=== PATIENT | female | born 1950 | race Caucasian/White ===

== ENCOUNTER → 2018-12-23 | Outpatient (CLI) | payer MEDICARE, OTHER ==
[~2018-12-23] MED LIST: ALPR.25 PO; ASPI81EC PO; ATOR10 PO; CALCAVITD PO; HYDACE5 PO; MAGCHL64ER PO; NITR100CA PO; NYST100SU MT; OMEP40CA12 PO; PHENA200 PO; POTCHL20ER PO; PRED10 PO; ZOLP10 PO; ZZCYCL50 PO
== END | disposition home or self-care (01) ==
LOC: LAB SHORT 15:23 → LAB EV 15:23
DX: N39.0 Urinary tract infection, site not specified (principal)
CPT/HCPCS: 87077; 87086; 87186

== ENCOUNTER → 2019-01-31 | Outpatient (CLI) | payer MEDICARE, OTHER ==
[2019-01-31 13:38] LABS: Protein, Urine Quantitative 51.9 mg/dL (0.0-11.9)
== END | disposition home or self-care (01) ==
LOC: LAB 12:33 → LAB SHORT 12:33
PROVIDERS: Internal Medicine Nephrology
DX: N18.2 Chronic kidney disease, stage 2 (mild) (principal); D63.1 Anemia in chronic kidney disease
CPT/HCPCS: 81050; 82043; 82570; 84156

== ENCOUNTER → 2019-03-27 | Outpatient (CLI) | payer MEDICARE, OTHER | END | disposition home or self-care (01) | LOC: LAB SHORT 15:14 → LAB 15:14 | DX: R35.0 Frequency of micturition (principal) | CPT/HCPCS: 87086 ==

== ENCOUNTER → 2019-06-20 | Outpatient (CLI) | payer MEDICARE, OTHER ==
[~2019-06-20] MED LIST changes: +ALPR.5 PO; +AMOCLA875 PO; +ATORVASTATIN CA10 MG PO; +AZAT50 PO; +Azithromycin250 MG; +CEPH500 PO; +FINA5 PO; +FISH OIL 1,001000 MG PO; +HYDHOMSY; +LEVFLO500 PO; +LEVO-T88 MCG PO; +MAGNESIUM250 MG PO; +NORT25 PO; +POTASSIUM99 MG PO; +PRED20 PO; +PROBIOTIC1 EAC2 PO; +SHINGRIX V50 MCG/0.5; +TOBRAMYCIN5 ML; +TRAZ50 PO; +Ventolin/Prove6.7 GM INH; +Vitamin D2000 UNIT PO
[2019-06-20 16:05] LABS: Creatinine Urine 50.1 mg/dL (27.00-270.00); Protein, Urine Quantitative 8.7 mg/dL (0.0-11.9)
[2019-06-20 16:08] LABS: Microalbumin, Urine Quant. 8.91 mg/L (0.000-20.000)
== END ==
LOC: LAB SHORT 10:35 → LAB 10:35
PROVIDERS: Internal Medicine Nephrology
DX: N18.3 Chronic kidney disease, stage 3 (moderate) (principal); D75.1 Secondary polycythemia
CPT/HCPCS: 81050; 82043; 82570; 84156

== ENCOUNTER → 2019-07-15 | Outpatient (CLI) | payer MEDICARE, OTHER ==
[2019-07-15 10:06] LABS: BASOPHILS ABSOLUTE AUTO 0.01 K/mm3 (0.00-0.23); BASOPHILS PERCENT AUTO 0 % (0-2); EOSINOPHILS ABSOLUTE AUTO 0.02 K/mm3 (0.00-0.68); EOSINOPHILS PERCENT AUTO 0 % (0-6); Hematocrit 35.9 % (33.0-51.0); Hemoglobin 12.5 g/dL (11.5-16.0); IMMATURE GRAN ABSOLUTE AUTO 0.02 K/mm3 (0.00-0.10); IMMATURE GRAN PERCENT AUTO 0 % (0-1); LYMPHOCYTES ABSOLUTE AUTO 1.04 K/mm3 (0.84-5.20); LYMPHOCYTES PERCENT AUTO 15 % (21-46); MONOCYTES ABSOLUTE AUTO 0.45 K/mm3 (0.16-1.47); MONOCYTES PERCENT AUTO 7 % (4-13); Mean Corpuscular HGB 32.1 pg (26.0-34.0); Mean Corpuscular HGB Conc 34.8 g/dL (31.5-36.5); Mean Corpuscular Volume 92 fL (80-100); Mean Platelet Volume 10.5 fL (9.1-12.4); NEUTROPHILS ABSOLUTE AUTO 5.32 K/mm3 (1.96-9.15); NEUTROPHILS PERCENT AUTO 78 % (41-73); Platelet Count 251 K/mm3 (150-400); RDW Coefficient Variation 12.3 % (11.7-14.2); RDW Standard Deviation 41.3 fL (35.1-46.3); White Blood Cell Count 6.86 K/mm3 (4.00-11.30)
[2019-07-15 10:16] LABS: Albumin/Globulin Ratio 0.6 (0.8-1.8); Bilirubin, Total 0.5 mg/dL (0.1-1.0); Bun/Creatinine Ratio 19.6 (12.0-20.0); Calcium, Blood 8.5 mg/dL (8.5-10.1); Creatinine, Blood 1.02 mg/dL (0.40-1.00); Globulin, Blood 4.7 g/dL (2.2-4.0); Potassium, Blood 3.3 mmol/L (3.5-5.5); Total Protein, Blood 7.7 g/dL (6.4-8.2)
== END ==
LOC: LAB SHORT 10:00 → LAB EV 10:00
PROVIDERS: Emergency Medicine
DX: R05 Cough (principal); R50.9 Fever, unspecified
CPT/HCPCS: 80053; 85025; 87040

== ENCOUNTER 2019-07-24 09:43 | Inpatient (IN) | payer MEDICARE, OTHER ==
[~2019-07-24] VITALS: Ht 162.6 cm; Wt 56.8 kg
[~2019-07-24 09:43] MED LIST changes: -ALPR.5 PO; -AMOCLA875 PO; -ATORVASTATIN CA10 MG PO; -AZAT50 PO; -Azithromycin250 MG; -CEPH500 PO; -FINA5 PO; -FISH OIL 1,001000 MG PO; -HYDHOMSY; -LEVFLO500 PO; -LEVO-T88 MCG PO; -MAGNESIUM250 MG PO; -NORT25 PO; -POTASSIUM99 MG PO; -PRED20 PO; -PROBIOTIC1 EAC2 PO; -SHINGRIX V50 MCG/0.5; -TOBRAMYCIN5 ML; -TRAZ50 PO; -Ventolin/Prove6.7 GM INH; -Vitamin D2000 UNIT PO
[2019-07-24 10:25] LABS: BASOPHILS ABSOLUTE AUTO 0.02 K/mm3 (0.00-0.23); BASOPHILS PERCENT AUTO 0 % (0-2); EOSINOPHILS PERCENT AUTO 0 % (0-6); Hematocrit 37.5 % (33.0-51.0); Hemoglobin 12.7 g/dL (11.5-16.0); IMMATURE GRAN ABSOLUTE AUTO 0.14 K/mm3 (0.00-0.10); IMMATURE GRAN PERCENT AUTO 1 % (0-1); LYMPHOCYTES ABSOLUTE AUTO 0.82 K/mm3 (0.84-5.20); LYMPHOCYTES PERCENT AUTO 5 % (21-46); MONOCYTES PERCENT AUTO 6 % (4-13); Mean Corpuscular HGB 31.8 pg (26.0-34.0); Mean Corpuscular HGB Conc 33.9 g/dL (31.5-36.5); Mean Corpuscular Volume 94 fL (80-100); Mean Platelet Volume 9.7 fL (9.1-12.4); NEUTROPHILS ABSOLUTE AUTO 15.98 K/mm3 (1.96-9.15); NEUTROPHILS PERCENT AUTO 89 % (41-73); Platelet Count 437 K/mm3 (150-400); RDW Coefficient Variation 12.5 % (11.7-14.2); RDW Standard Deviation 43.5 fL (35.1-46.3); Red Blood Cell Count 3.99 M/mm3 (3.80-5.20); White Blood Cell Count 17.96 K/mm3 (4.00-11.30)
[2019-07-24] MEDS ORDERED: FINA5 PO (10:51)
[2019-07-24] MEDS ORDERED: LEVFLO500 PO (10:52)
[2019-07-24] MEDS ORDERED: Azithromycin250 MG (10:52)
[2019-07-24] MEDS ORDERED: NORT25 PO (10:52)
[2019-07-24] MEDS ORDERED: TRAZ50 PO (10:52)
[2019-07-24] MEDS ORDERED: ATORVASTATIN CA10 MG PO (10:52)
[2019-07-24] MEDS ORDERED: LEVO-T88 MCG PO (10:52)
[2019-07-24] MEDS ORDERED: TOBRAMYCIN5 ML (10:52)
[2019-07-24] MEDS ORDERED: PRED20 PO (10:52)
[2019-07-24] MEDS ORDERED: HYDHOMSY (10:53)
[2019-07-24] MEDS ORDERED: Ventolin/Prove6.7 GM INH (10:53)
[2019-07-24 10:54] LABS: Alanine Aminotransfer (ALT/SGP 11 U/L (12-78); Albumin, Blood 2.3 g/dL (3.4-5.0); Albumin/Globulin Ratio 0.4 (0.8-1.8); Alk Phos 120 U/L (50-136); Anion Gap 8 mmol/L (6-16); Aspartate Aminotrans (AST/SGOT 10 U/L (12-37); Bilirubin, Total 0.5 mg/dL (0.1-1.0); Blood Urea Nitrogen 22 mg/dL (8-24); Bun/Creatinine Ratio 29.5 (12.0-20.0); CO2, Blood 28 mmol/L (21-32); Calcium, Blood 9.6 mg/dL (8.5-10.1); Chloride, Blood 103 mmol/L (98-108); Creatinine, Blood 0.75 mg/dL (0.40-1.00); Globulin, Blood 5.5 g/dL (2.2-4.0); Glomerular Filtration Rate >60 (60-); Glucose, Blood 108 mg/dL (70-99); Potassium, Blood 3.6 mmol/L (3.5-5.5); Sodium, Blood 139 mmol/L (136-145); Total Protein, Blood 7.8 g/dL (6.4-8.2)
[2019-07-24] MEDS ORDERED: AZAT50 PO (13:09)
--- NOTE | 2019-07-24 18:40 | NUR ---
SHE CAME TO ROOM 312 WITH A 22G IV IN HER RH. NO OTHER IV SITES.
--- NOTE | 2019-07-24 18:41 | NUR ---
SHE HAS BEEN ADMITTED TO 312 FROM THE ER AT 1725. SHE IS A&O. SHE IS SOFT SPOKEN. ORIENTED TO THE ROOM, THE CALL LIGHT, TV CONTROL AND TELEPHONE. SHE IS PALE AND APPEARS PETITE AND FRAGILE. SHE DENIES PAIN OR SOB. SHE DOES ADMIT TO SOME SOB WHILE SHE IS COUGHING. HER COUGH IS WET BUT NON-PRODUCTIVE. SPUTUM CUP AT BEDSIDE IN CASE SHE CAN EXPECTORATE. ADMIT HX AND ASSESSMENT DONE. HER IS BRINGING HER MED LIST TONIGHT. TEDS ON BILATERALLY AND LOVENOX STARTED.SHE ATE A GOOD DINNER.
--- NOTE | 2019-07-24 20:52 | NUR ---
ASSUMED CARE OF THE PATIENT. PATIENT UP TO THE BATHROOM. GETS TO COUGHING FROM BRONCHIAL SPASMS WHEN EVER SHE TALKS OR WHEN SHE GETS UP AND MOVES. SHE GOT TO THE BATHROOM AND GOT SOB WITH THE EXERTION. LOST HER BREATH WHILE BRUSHING HER TEETH. VOIDED CLEAR YELLOW. ASSISTED BACK TO BED. WRAPPED HER IV SITE, INFUSING WITH OUT ANY PROBLEMS. RT REPORTS SHE HAS REFUSED CPAP AND DOES NOT WANT A BREATHING TREATMENT AT THIS TIME. LUNG SOUNDS ARE DIMINISHED WITH VERY FINE RALES HER AND THERE BETWEEN THE COUGHING SPASMS. CALL LIGHT GIVEN, WILL CONTINUE TO MONITOR.
[2019-07-24] MEDS ORDERED: ALPR.5 PO (22:23)
[2019-07-24] MEDS ORDERED: SHINGRIX V50 MCG/0.5 ×2 (22:26→22:29)
[2019-07-24] MEDS ORDERED: FISH OIL 1,001000 MG PO (22:26)
[2019-07-24] MEDS ORDERED: Vitamin D2000 UNIT PO (22:28)
[2019-07-24] MEDS ORDERED: MAGNESIUM250 MG PO (22:29)
[2019-07-24] MEDS ORDERED: POTASSIUM99 MG PO (22:31)
[2019-07-25 04:53] LABS: BASOPHILS ABSOLUTE AUTO 0.02 K/mm3 (0.00-0.23); BASOPHILS PERCENT AUTO 0 % (0-2); EOSINOPHILS ABSOLUTE AUTO 0.01 K/mm3 (0.00-0.68); EOSINOPHILS PERCENT AUTO 0 % (0-6); Hemoglobin 10.9 g/dL (11.5-16.0); IMMATURE GRAN ABSOLUTE AUTO 0.13 K/mm3 (0.00-0.10); IMMATURE GRAN PERCENT AUTO 1 % (0-1); LYMPHOCYTES ABSOLUTE AUTO 0.97 K/mm3 (0.84-5.20); LYMPHOCYTES PERCENT AUTO 6 % (21-46); MONOCYTES ABSOLUTE AUTO 1.14 K/mm3 (0.16-1.47); MONOCYTES PERCENT AUTO 7 % (4-13); Mean Corpuscular HGB 31.4 pg (26.0-34.0); Mean Corpuscular Volume 95 fL (80-100); NEUTROPHILS ABSOLUTE AUTO 14.08 K/mm3 (1.96-9.15); NEUTROPHILS PERCENT AUTO 86 % (41-73); Platelet Count 409 K/mm3 (150-400); RDW Coefficient Variation 12.8 % (11.7-14.2); RDW Standard Deviation 44.4 fL (35.1-46.3); Red Blood Cell Count 3.47 M/mm3 (3.80-5.20); White Blood Cell Count 16.35 K/mm3 (4.00-11.30)
[2019-07-25 05:26] LABS: Anion Gap 9 mmol/L (6-16); Blood Urea Nitrogen 18 mg/dL (8-24); Bun/Creatinine Ratio 26.1 (12.0-20.0); CO2, Blood 25 mmol/L (21-32); Calcium, Blood 8.4 mg/dL (8.5-10.1); Chloride, Blood 108 mmol/L (98-108); Creatinine, Blood 0.69 mg/dL (0.40-1.00); Glomerular Filtration Rate >60 (60-); Glucose, Blood 83 mg/dL (70-99); Potassium, Blood 3.6 mmol/L (3.5-5.5); Sodium, Blood 142 mmol/L (136-145)
--- NOTE | 2019-07-25 05:41 | NUR ---
SHIFT SUMMARY: DENILSON HAD A ROUGH NIGHT, EVERY TIME SHE STARTED TO REST SHE WOULD COUGH KEEPING HER AWAKE. SHE DENIED CPAP, BREATHING TREATMENTS OR ANYTHING TO HELP HER. SHE SAID SHE WOULD TALK TO DR. RUTH IN THE MORNING AND GO FROM THERE. SHE WAS SBA TO THE BATHROOMS DUE TO IV POLE AND MILD WEAKNESS, BUT DID ALRIGHT WHEN SHE DID GO. IV CONTINUED TO INFUSE WITH NO DIFFICULTIES. NO OTHER ACUTE CHANGES OCCURRED THIS SHIFT. CALL LIGHT REMAINED WITH IN REACH AND USED APPROPRIATLY. WILL REPORT TO DAY SHIFT RN.
--- NOTE | 2019-07-25 11:57 | NUR ---
SHE HAS BEEN TRYING TO SLEEP. EARLIER CONSULTED WITH HER. JUST NOW, ROUNDED ON HER. ORDERED HER COUGH SYRUP. HAS BEEN NOTIFIED OF HER 2 POS BLD CULTURES AND THAT SHE IS REQUESTING AN ORDER FOR HER XANAX. SHE HAS BEEN NPO SINCE 8AM. BRONCH TIME ABOUT 1230. THE COUGH SYRUP HAS HELPED HER COUGH.
--- NOTE | 2019-07-25 13:41 | NUR ---
TO DAY SURGERY VIA [facility] AT 1340.
--- NOTE | 2019-07-25 13:44 | NUR ---
History, Chart, Medications and Allergies reviewed before start of procedure. Patient confirms NPO since 0800 and agrees with scheduled surgery. Patient has been NPO since midnight except for 5 ounces of chocolate milk finished at [address] Ferris notified and plan for propofol sedation continues.
--- NOTE | 2019-07-25 14:43 | NUR ---
07/25/19 1443 Felipe Blanton Bite Block Placed. PATIENT DETERMINED TO BE ASA APPROPRIATE FOR PROPOFOL SEDATION PRIOR TO START OF PROCEDURE BY 3-LEAD EKG REVIEWED WITH PHYSICIAN PRIOR TO START OF PROCEDURE.Patient to ENDO 2. MONITOR INTACT WITH CONTINUOUS PULSE OXIMETRY AND INTERMITTENT BP. O2 VIA N/C INTACT THROUGHOUT SEDATION/PROCEDURE.
--- NOTE | 2019-07-25 15:52 | NUR ---
TO THIRD FLOOR WITH RN AFTER REPORT GIVEN PATIMARYANN TCONTINUES TO COUGH SOME BUT HAS GOTTEN SLIGHTLY BETTER AFTER BREATHING TREATMENT
--- NOTE | 2019-07-25 16:48 | NUR ---
SHE RETURNED FROM DAY SURGERY POST [facility]ONCH AT 1558. SHE WAS AWAKE AND COUGHING. NO SPUTUM. HER WAS WAITING FOR HER. SHE REMAINS NPO UNTIL 1714. VSS X2. IVF'S RESUMED. NEW ANTIBIOTICS STARTED. SHE FILLED OUT HER MENU FOR THE NEXT 2 MEALS EVEN THOUGH SHE SAYS SHE HAS NO APPETITE. SHE REMAINS ON RA, NO O2.
--- NOTE | 2019-07-25 17:46 | NUR ---
AT 1715 SHE TOOK SOME DRINKS OF WATER WITHOUT PROBLEM POST BRONCHOSCOPY. SHE THEN TOOK COUGH SYRUP, AN ALPRAZALOM AND SOME DINNER. NO DYSPHAGIA. HER CONSTANT COUGH POST BRONCH HAS SUBSIDED. VSS. NO DIZZINESS. RA SATS WNL. PATIENT ADVOCATE NOTIFIED THAT SHE AND HER WOULD LIKE US TO PROVIDE WITNESSES TO THEIR ADVANCE DIRECTIVES IF POSSIBLE. SHE WILL LOOK INTO THAT IN THE MORNING. 4 ANTIBIOTICS GIVEN TODAY.
--- NOTE | 2019-07-25 19:55 | NUR ---
ASSUMED CARE OF THE PATIENT. PATIENT VISITING WITH HER FAMILY. STILL HAVING COUGHING SPASMS BUT NOT BAD. SHE HAD HER COUGH SYRUP TODAY WHICH HAS HELPED. LUNG SOUNDS ARE RALES THROUGHOUT, SECREATIONS STARTING TO BREAK UP. ENCOURAGED USE OF INSPIROMETER AND FLUTTER VALVE. INSTRUCTED TO USE AT LEAST 5 TIMES A DAY TO HELP. ASSESSMENT COMPLETED. CALL LIGHT IN REACH WILL CONTINUE TO MONTIOR.
[2019-07-26 04:02] LABS: BASOPHILS ABSOLUTE AUTO 0.01 K/mm3 (0.00-0.23); BASOPHILS PERCENT AUTO 0 % (0-2); EOSINOPHILS ABSOLUTE AUTO 0.12 K/mm3 (0.00-0.68); EOSINOPHILS PERCENT AUTO 1 % (0-6); Hematocrit 29.1 % (33.0-51.0); Hemoglobin 9.6 g/dL (11.5-16.0); IMMATURE GRAN ABSOLUTE AUTO 0.06 K/mm3 (0.00-0.10); IMMATURE GRAN PERCENT AUTO 1 % (0-1); LYMPHOCYTES ABSOLUTE AUTO 0.94 K/mm3 (0.84-5.20); LYMPHOCYTES PERCENT AUTO 10 % (21-46); MONOCYTES ABSOLUTE AUTO 0.83 K/mm3 (0.16-1.47); MONOCYTES PERCENT AUTO 8 % (4-13); Mean Corpuscular HGB 31.8 pg (26.0-34.0); Mean Corpuscular Volume 96 fL (80-100); Mean Platelet Volume 9.6 fL (9.1-12.4); NEUTROPHILS ABSOLUTE AUTO 7.97 K/mm3 (1.96-9.15); NEUTROPHILS PERCENT AUTO 80 % (41-73); Platelet Count 330 K/mm3 (150-400); RDW Coefficient Variation 12.8 % (11.7-14.2); RDW Standard Deviation 45.1 fL (35.1-46.3); Red Blood Cell Count 3.02 M/mm3 (3.80-5.20); White Blood Cell Count 9.93 K/mm3 (4.00-11.30)
[2019-07-26 04:17] LABS: Albumin, Blood 1.7 g/dL (3.4-5.0); Anion Gap 7 mmol/L (6-16); Blood Urea Nitrogen 7 mg/dL (8-24); Bun/Creatinine Ratio 12.1 (12.0-20.0); CO2, Blood 27 mmol/L (21-32); Calcium, Blood 7.9 mg/dL (8.5-10.1); Chloride, Blood 109 mmol/L (98-108); Creatinine, Blood 0.58 mg/dL (0.40-1.00); Glomerular Filtration Rate >60 (60-); Glucose, Blood 92 mg/dL (70-99); Phosphorus, Blood 2.7 mg/dL (2.5-4.9); Potassium, Blood 3.5 mmol/L (3.5-5.5); Sodium, Blood 143 mmol/L (136-145)
--- NOTE | 2019-07-26 06:15 | NUR ---
SHIFT SUMMARY: 69 Y/O FEMALE. RESTED COMFORTABLY THROUGHOUT THE SHIFT. SHE HAD A BETTER NIGHT TONIGHT, WITH LESS COUGHING SPASMS, AND ABILTIY TO SLEEP WITH USE OF CPAP. SATS REMAINED WNL ALL NIGHT. VS WNL EXCEPT ONE TIME WITH TACHYCARDIA AFTER A COUGHING SPELL. LABS THIS AM SHOWED DECREASE IN WBC FROM 17.9 TO 9.9. MEDS WERE GIVEN PER EMAR. SHE DENIED ANY FURTHER NEEDS THIS SHIFT. WILL REPORT TO DAY SHIFT RN.
[2019-07-26 14:27] LABS: Vancomycin, Trough 10.2 ug/mL (5.0-10.0)
--- NOTE | 2019-07-26 16:33 | NUR ---
SHIFT SUMMARY IV ANTIBIOTICS GIVEN ORDERED. BLOOD CULTURES SHOWING STAPH. PT DID WALK IN THE HALLWAY TODAY WITH HER AND SHE DID PRACTICE WITH HER FLUTTER VALVE. PLAN IS FOR HOPEFUL DC TOMORROW. IV VANCO GIVEN ORDERED. CPAP IS IN ROOM FOR NIGHT TIME USE. NS W/20 MEQ K+ RUNNING @ 75 ML/HR.
--- NOTE | 2019-07-26 20:02 | NUR ---
ASSUMED CARE OF THE PATIENT. SHE HAD HER SHOWER, AND THEN WAS WALKING OUT IN THE [place] TO THE NURSE STATION AND BACK. DENIED ANY CONCERNS. STATES SHE FEELS SO MUCH BETTER THEN HAS BEEN. HOPES SHE CAN GO HOME TOMORROW. ENCOURAGED HER TO USE THE INSPIROMETER AND FLUTTER VALVE. ASSESSMENT COMPLETED. CALL LIGHT IN REACH. WILL CONTINUE TO MONITOR.
--- NOTE | 2019-07-27 06:09 | NUR ---
SHIFT SUMMARY: 69 Y/O FEMALE RESTED COMFORTABLY ALL NIGHT WITH FEW COUGHING SPASMS. SHE SLEPT WITH HER CPAP ON CONTINUOUSLY. IV CONTINUED TO INFUSE AT 75ML/HR WITH OCCATIONAL ANTIBOTIC DOSAGES. MEDS WERE GIVEN PER EMAR. SHE DID NOT RECEIVE ANY PRN MEDS THIS SHIFT. CALL LIGHT REMAINED WITH IN REACH AND USED APPROPRIATELY. WILL REPORT TO DAY SHIFT.
[2019-07-27] MEDS ORDERED: AMOCLA875 PO (14:49)
--- NOTE | 2019-07-27 17:52 | NUR ---
DISCHARGE NOTE IV DC'D WNL. MEDICATIONS FAXED TO PREFERED PHARMACY. PT PROVIDED WITH HARDCOPY AND VERBAL INSTRUCTIONS FOR DISCHARGE RE: DIAGNOSES, MEDICATIONS, FOLLOW UP APPOINTMENTS. PT DRESSED IN PERSONAL CLOTHING, GATHERED HER PERSONAL POSSESSIONS. FAMILY NOTIFIED AND ARRIVED TO BURNER TECHNICIAN THE PT. PT ESCORTED OUT BY FAMILY VIA WHEELCHAIR. PT HAD NO FURTHER QUESTIONS
== END 2019-07-27 16:06 | disposition home or self-care (01) | DRG 853 ==
LOC: ER 09:43 → MEDS 15:47 → ENPENDDIS 07-27 14:28 → MEDS 07-27 16:06
PROVIDERS: Emergency Medicine; Internal Medicine Critical Care Medicine; ADMIT Family Medicine
PROC: 0B9C8ZX Drainage of Right Upper Lung Lobe, Via Natural or Artificial Opening Endoscopic, Diagnostic (ICD-10-PCS; 2019-07-25)
PROC: 0B9H8ZX Drainage of Lung Lingula, Via Natural or Artificial Opening Endoscopic, Diagnostic (ICD-10-PCS; principal; 2019-07-25 13:00)
DX: A41.01 Sepsis due to Methicillin susceptible Staphylococcus aureus (principal); J15.211 Pneumonia due to Methicillin susceptible Staphylococcus aureus; J84.9 Interstitial pulmonary disease, unspecified; E78.00 Pure hypercholesterolemia, unspecified; G47.33 Obstructive sleep apnea (adult) (pediatric); Z86.711 Personal history of pulmonary embolism; F41.1 Generalized anxiety disorder; E03.9 Hypothyroidism, unspecified; E78.5 Hyperlipidemia, unspecified; M81.0 Age-related osteoporosis without current pathological fracture; N18.2 Chronic kidney disease, stage 2 (mild); F51.04 Psychophysiologic insomnia; Z87.891 Personal history of nicotine dependence; J47.9 Bronchiectasis, uncomplicated; Z93.0 Tracheostomy status; J84.10 Pulmonary fibrosis, unspecified; I12.9 Hypertensive chronic kidney disease with stage 1 through stage 4 chronic kidney disease, or unspecified chronic kidney disease
CPT/HCPCS: 36415; 71046; 71260; 80048; 80053; 80069; 80202; 83605; 85025; 87015; 87040; 87070; 87077; 87102; 87147; 87186; 87205; 88108; 88312; 93005; 93010; 94667; 94668; 94760; 94762; 96361; 96365-59; 96367; 96375-59; 99285-25; J0456; J0690; J0696; J1650; J2704; J3370; J3480; J7030; J7050; J7120; J7500; Q9967

== ENCOUNTER 2019-08-01 11:19 | Emergency (ER) | payer MEDICARE, OTHER ==
[~2019-08-01] VITALS: Ht 162.6 cm; Wt 57.1 kg
[~2019-08-01 11:19] MED LIST changes: +ALPR.5 PO; +AMOCLA875 PO; +ATORVASTATIN CA10 MG PO; +AZAT50 PO; +Azithromycin250 MG; +FINA5 PO; +FISH OIL 1,001000 MG PO; +HYDHOMSY; +LEVFLO500 PO; +LEVO-T88 MCG PO; +MAGNESIUM250 MG PO; +NORT25 PO; +POTASSIUM99 MG PO; +PRED20 PO; +SHINGRIX V50 MCG/0.5; +TOBRAMYCIN5 ML; +TRAZ50 PO; +Ventolin/Prove6.7 GM INH; +Vitamin D2000 UNIT PO
[2019-08-01 12:38] LABS: BASOPHILS ABSOLUTE AUTO 0.02 K/mm3 (0.00-0.23); BASOPHILS PERCENT AUTO 0 % (0-2); EOSINOPHILS ABSOLUTE AUTO 0.12 K/mm3 (0.00-0.68); EOSINOPHILS PERCENT AUTO 1 % (0-6); Hematocrit 38.2 % (33.0-51.0); Hemoglobin 12.4 g/dL (11.5-16.0); IMMATURE GRAN ABSOLUTE AUTO 0.06 K/mm3 (0.00-0.10); IMMATURE GRAN PERCENT AUTO 1 % (0-1); LYMPHOCYTES ABSOLUTE AUTO 1.38 K/mm3 (0.84-5.20); LYMPHOCYTES PERCENT AUTO 12 % (21-46); MONOCYTES PERCENT AUTO 6 % (4-13); Mean Corpuscular HGB 31.9 pg (26.0-34.0); Mean Corpuscular HGB Conc 32.5 g/dL (31.5-36.5); Mean Corpuscular Volume 98 fL (80-100); Mean Platelet Volume 9.6 fL (9.1-12.4); NEUTROPHILS ABSOLUTE AUTO 9.31 K/mm3 (1.96-9.15); NEUTROPHILS PERCENT AUTO 80 % (41-73); Platelet Count 470 K/mm3 (150-400); RDW Coefficient Variation 12.9 % (11.7-14.2); RDW Standard Deviation 45.6 fL (35.1-46.3); Red Blood Cell Count 3.89 M/mm3 (3.80-5.20); White Blood Cell Count 11.59 K/mm3 (4.00-11.30)
[2019-08-01 13:17] LABS: Alanine Aminotransfer (ALT/SGP 20 U/L (12-78); Albumin, Blood 2.5 g/dL (3.4-5.0); Albumin/Globulin Ratio 0.5 (0.8-1.8); Alk Phos 107 U/L (50-136); Anion Gap 5 mmol/L (6-16); Aspartate Aminotrans (AST/SGOT 19 U/L (12-37); Bilirubin, Total 0.3 mg/dL (0.1-1.0); Blood Urea Nitrogen 25 mg/dL (8-24); Bun/Creatinine Ratio 27.8 (12.0-20.0); CO2, Blood 32 mmol/L (21-32); Calcium, Blood 9.2 mg/dL (8.5-10.1); Chloride, Blood 102 mmol/L (98-108); Globulin, Blood 4.6 g/dL (2.2-4.0); Glomerular Filtration Rate >60 (60-); Glucose, Blood 126 mg/dL (70-99); Potassium, Blood 3.3 mmol/L (3.5-5.5); Sodium, Blood 139 mmol/L (136-145); Total Protein, Blood 7.1 g/dL (6.4-8.2)
[2019-08-01 13:29] LABS: Source, Urine Clean Catch
[2019-08-01 13:44] LABS: Bilirubin, Urine Neg (Neg); Blood, Urine 5+ (Neg); Glucose Qualitative, Urine Neg (Neg); Ketones, Urine Neg (Neg); Leukocyte Esterase, Urine 1+ (Neg); Nitrite, Urine Neg (Neg); Protein, Urine Neg (Neg); Urobilinogen, Urine NORM (Normal); pH, Urine 6.5 (5.0-8.0)
[2019-08-01 13:59] LABS: Appearance, Urine Hazy (Clear); Color, Urine Yellow (P-Yellow)
[2019-08-01 14:01] LABS: Bacteria Mod /hpf; Squamous Epithelial Cells Rare /hpf (Few)
[2019-08-01] MEDS ORDERED: CEPH500 PO (15:40)
[2019-08-01] MEDS ORDERED: PROBIOTIC1 EAC2 PO (15:40)
== END 2019-08-01 16:30 | disposition home or self-care (01) ==
LOC: ER 11:19
PROVIDERS: Emergency Medicine
DX: N39.0 Urinary tract infection, site not specified (principal); J18.9 Pneumonia, unspecified organism; E87.6 Hypokalemia; Z79.899 Other long term (current) drug therapy
CPT/HCPCS: 36415; 80053; 81001; 85025; 87086; 93005; 93010; 99283-25

== ENCOUNTER → 2021-04-25 | Outpatient (CLI) | payer MEDICARE, OTHER ==
[~2021-04-25] MED LIST changes: +CEPH500 PO; +PROBIOTIC1 EAC2 PO
== END | disposition home or self-care (01) ==
LOC: LAB SHORT 12:27 → LAB 12:27
DX: N39.0 Urinary tract infection, site not specified (principal)
CPT/HCPCS: 87086

== ENCOUNTER → 2021-09-16 | Outpatient (CLI) | payer MEDICARE, OTHER ==
[2021-09-16 15:20] LABS: Creatinine Urine 56.6 mg/dL (27.00-270.00)
[2021-09-16 15:23] LABS: Microalbumin, Urine Quant. 44.6 mg/L (0.000-20.000)
== END | disposition home or self-care (01) ==
LOC: LAB SHORT 09:00 → LAB 09:00 → LAB FUT 09-15 07:40
PROVIDERS: Internal Medicine Nephrology
DX: N18.30 Chronic kidney disease, stage 3 unspecified (principal); D63.1 Anemia in chronic kidney disease; N25.81 Secondary hyperparathyroidism of renal origin; E55.9 Vitamin D deficiency, unspecified; E78.00 Pure hypercholesterolemia, unspecified; R76.9 Abnormal immunological finding in serum, unspecified; R94.5 Abnormal results of liver function studies; R94.6 Abnormal results of thyroid function studies
CPT/HCPCS: 81050; 82043; 82570; 84156

== ENCOUNTER 2021-11-05 08:53 | Day surgery (SDC) | payer MEDICARE, OTHER ==
[~2021-11-05] VITALS: Ht 162.6 cm; Wt 60.8 kg
== END 2021-11-05 11:15 | disposition home or self-care (01) ==
LOC: ORSCSDS 08:53
PROVIDERS: Surgery
PROC: 0DBK8ZX Excision of Ascending Colon, Via Natural or Artificial Opening Endoscopic, Diagnostic (ICD-10-PCS; principal; 2021-11-05 10:15)
DX: Z12.11 Encounter for screening for malignant neoplasm of colon (principal); D12.2 Benign neoplasm of ascending colon; G47.33 Obstructive sleep apnea (adult) (pediatric); J44.9 Chronic obstructive pulmonary disease, unspecified; E03.9 Hypothyroidism, unspecified; F32.A Depression, unspecified; Z79.899 Other long term (current) drug therapy
CPT/HCPCS: J0461; J2405; J2704; J7120

== ENCOUNTER → 2021-11-14 | Outpatient (CLI) | payer MEDICARE, OTHER | END | disposition home or self-care (01) | LOC: LAB SHORT 11:00 | DX: R30.0 Dysuria (principal) | CPT/HCPCS: 87077; 87086; 87186 ==

== ENCOUNTER → 2022-06-06 | Outpatient (CLI) | payer MEDICARE, OTHER ==
[2022-06-06 17:02] LABS: Creatinine Urine 55.3 mg/dL (27.00-270.00); Protein, Urine Quantitative 71.9 mg/dL (0.0-11.9)
== END | disposition home or self-care (01) ==
LOC: LAB SHORT 14:25
PROVIDERS: Internal Medicine Nephrology
DX: N18.30 Chronic kidney disease, stage 3 unspecified (principal); D63.1 Anemia in chronic kidney disease; N25.81 Secondary hyperparathyroidism of renal origin; E55.9 Vitamin D deficiency, unspecified; E78.00 Pure hypercholesterolemia, unspecified; G60.9 Hereditary and idiopathic neuropathy, unspecified; D51.8 Other vitamin B12 deficiency anemias; D52.8 Other folate deficiency anemias; R76.9 Abnormal immunological finding in serum, unspecified; R94.5 Abnormal results of liver function studies; R94.6 Abnormal results of thyroid function studies
CPT/HCPCS: 81050; 82043; 82570; 84156

== ENCOUNTER → 2022-07-02 | Outpatient (CLI) | payer MEDICARE, OTHER | END | disposition home or self-care (01) | LOC: LAB SHORT 16:29 | DX: N39.0 Urinary tract infection, site not specified (principal) | CPT/HCPCS: 87086; 87147 ==

== ENCOUNTER → 2022-10-01 | Outpatient (CLI) | payer MEDICARE, OTHER ==
[2022-10-01 14:19] LABS: Creatinine Urine 70.8 mg/dL (27.00-270.00); Protein, Urine Quantitative 13.5 mg/dL (0.0-11.9)
[2022-10-01 14:21] LABS: Microalbumin, Urine Quant. 29.4 mg/L (0.000-20.000)
== END | disposition home or self-care (01) ==
LOC: LAB SHORT 06:25
PROVIDERS: Internal Medicine Nephrology
DX: N18.30 Chronic kidney disease, stage 3 unspecified (principal); D63.1 Anemia in chronic kidney disease; G60.9 Hereditary and idiopathic neuropathy, unspecified; N25.81 Secondary hyperparathyroidism of renal origin; E55.9 Vitamin D deficiency, unspecified; E78.00 Pure hypercholesterolemia, unspecified; R76.9 Abnormal immunological finding in serum, unspecified; R94.5 Abnormal results of liver function studies
CPT/HCPCS: 81050; 82043; 82570; 84156

== ENCOUNTER → 2022-10-27 | Outpatient (CLI) | payer MEDICARE, OTHER | END | disposition home or self-care (01) | LOC: LAB SHORT 10:00 | DX: J47.9 Bronchiectasis, uncomplicated (principal); R05.3 Chronic cough | CPT/HCPCS: 87070; 87077; 87186; 87205 ==

== ENCOUNTER → 2022-11-04 | Outpatient (CLI) | payer MEDICARE, OTHER ==
[2022-11-05 16:17] LABS: Creatinine Urine 69.1 mg/dL (27.00-270.00)
[2022-11-05 16:20] LABS: Microalbumin, Urine Quant. 81.2 mg/L (0.000-20.000)
== END | disposition home or self-care (01) ==
LOC: LAB SHORT 10:30 → LAB 10:30 → LAB SHORT 11-05 10:30
PROVIDERS: Internal Medicine Nephrology
DX: N18.30 Chronic kidney disease, stage 3 unspecified (principal); D63.1 Anemia in chronic kidney disease; N25.81 Secondary hyperparathyroidism of renal origin; E55.9 Vitamin D deficiency, unspecified; R76.9 Abnormal immunological finding in serum, unspecified; R94.5 Abnormal results of liver function studies; R94.6 Abnormal results of thyroid function studies
CPT/HCPCS: 81050; 82043; 82570; 84156

== ENCOUNTER → 2022-11-14 | Outpatient (CLI) | payer MEDICARE, OTHER | END | disposition home or self-care (01) | LOC: LAB SHORT 13:33 | DX: N39.0 Urinary tract infection, site not specified (principal) | CPT/HCPCS: 87077; 87086; 87186 ==

== ENCOUNTER → 2023-01-04 | Outpatient (CLI) | payer MEDICARE, OTHER ==
[2023-01-05 18:21] LABS: Protein, Urine Quantitative 39.8 mg/dL (0.0-11.9)
[2023-01-05 18:48] LABS: Creatinine Urine 52.4 mg/dL (27.00-270.00)
== END | disposition home or self-care (01) ==
LOC: LAB SHORT 13:32
PROVIDERS: Internal Medicine Nephrology
DX: N18.2 Chronic kidney disease, stage 2 (mild) (principal); R80.9 Proteinuria, unspecified
CPT/HCPCS: 82043; 82570; 84156

== ENCOUNTER → 2023-05-28 | Outpatient (CLI) | payer MEDICARE, OTHER ==
[2023-05-28 13:39] LABS: Protein, Urine Quantitative 38.1 mg/dL (0.0-11.9)
[2023-05-28 13:45] LABS: Creatinine Urine 41.3 mg/dL (27.00-270.00)
== END | disposition home or self-care (01) ==
LOC: LAB 10:53 → LAB SHORT 10:53
PROVIDERS: Internal Medicine Nephrology
DX: N18.30 Chronic kidney disease, stage 3 unspecified (principal); D63.1 Anemia in chronic kidney disease; N25.81 Secondary hyperparathyroidism of renal origin; N39.0 Urinary tract infection, site not specified; E55.9 Vitamin D deficiency, unspecified; E78.00 Pure hypercholesterolemia, unspecified; R76.9 Abnormal immunological finding in serum, unspecified; R94.5 Abnormal results of liver function studies; R94.6 Abnormal results of thyroid function studies; D51.8 Other vitamin B12 deficiency anemias; D52.8 Other folate deficiency anemias; D50.9 Iron deficiency anemia, unspecified
CPT/HCPCS: 81050; 82043; 82570; 84156

== ENCOUNTER → 2023-10-20 | Outpatient (CLI) | payer MEDICARE, OTHER ==
[2023-10-20 11:44] LABS: Protein, Urine Quantitative 7.9 mg/dL (0.0-11.9)
== END ==
LOC: LAB SHORT 09:25 → LAB 09:25
PROVIDERS: Internal Medicine Nephrology
DX: N18.2 Chronic kidney disease, stage 2 (mild) (principal); D63.1 Anemia in chronic kidney disease
CPT/HCPCS: 81050; 84156

== ENCOUNTER → 2024-07-03 | Outpatient (CLI) | payer MEDICARE, OTHER ==
[2024-07-03 10:58] LABS: Creatinine Urine 72.5 mg/dL (27.00-270.00); Microalbumin, Urine Quant. 13.3 mg/L (0.000-20.000); Protein, Urine Quantitative 11.5 mg/dL (0.0-11.9)
== END ==
LOC: LAB 09:49 → LAB SHORT 09:49
PROVIDERS: Internal Medicine Nephrology
DX: N18.2 Chronic kidney disease, stage 2 (mild) (principal); D63.1 Anemia in chronic kidney disease; N25.81 Secondary hyperparathyroidism of renal origin; E55.9 Vitamin D deficiency, unspecified; R76.9 Abnormal immunological finding in serum, unspecified; R94.5 Abnormal results of liver function studies; R94.6 Abnormal results of thyroid function studies
CPT/HCPCS: 81050; 82043; 82570; 84156

== ENCOUNTER → 2024-11-28 | Outpatient (CLI) | payer MEDICARE, OTHER ==
[2024-11-28 15:08] LABS: BASOPHILS ABSOLUTE AUTO 0.03 K/mm3 (0.00-0.23); BASOPHILS PERCENT AUTO 0 % (0-2); EOSINOPHILS ABSOLUTE AUTO 0.15 K/mm3 (0.00-0.68); EOSINOPHILS PERCENT AUTO 2 % (0-6); Hemoglobin 11.7 g/dL (11.5-16.0); IMMATURE GRAN ABSOLUTE AUTO 0.02 K/mm3 (0.00-0.10); IMMATURE GRAN PERCENT AUTO 0 % (0-1); LYMPHOCYTES ABSOLUTE AUTO 2.08 K/mm3 (0.84-5.20); LYMPHOCYTES PERCENT AUTO 25 % (21-46); MONOCYTES PERCENT AUTO 7 % (4-13); Mean Corpuscular HGB 36.8 pg (26.0-34.0); Mean Corpuscular HGB Conc 33.4 g/dL (31.5-36.5); Mean Corpuscular Volume 110 fL (80-100); Mean Platelet Volume 9.6 fL (9.1-12.4); NEUTROPHILS ABSOLUTE AUTO 5.59 K/mm3 (1.96-9.15); NEUTROPHILS PERCENT AUTO 66 % (41-73); Platelet Count 367 K/mm3 (150-400); RDW Coefficient Variation 14.5 % (11.7-14.2); RDW Standard Deviation 58.7 fL (35.1-46.3); Red Blood Cell Count 3.18 M/mm3 (3.80-5.20); White Blood Cell Count 8.47 K/mm3 (4.00-11.30)
[2024-11-28 15:24] LABS: Albumin, Blood 3.7 g/dL (3.4-5.0); Albumin/Globulin Ratio 0.8 (0.8-1.8); Bilirubin, Total 0.4 mg/dL (0.1-1.0); Bun/Creatinine Ratio 13.6 (12.0-20.0); Calcium, Blood 9.9 mg/dL (8.5-10.1); Creatinine, Blood 1.18 mg/dL (0.40-1.00); Globulin, Blood 4.5 g/dL (2.2-4.0); Potassium, Blood 4.3 mmol/L (3.5-5.5); Total Protein, Blood 8.2 g/dL (6.4-8.2)
== END | disposition home or self-care (01) ==
LOC: LAB 15:04 → LAB SHORT 15:04
PROVIDERS: Chiropractor
DX: R06.00 Dyspnea, unspecified (principal)
CPT/HCPCS: 80053; 83880; 84484; 85025; 85379

== ENCOUNTER → 2025-03-16 | Outpatient (CLI) | payer MEDICARE, OTHER | END | disposition home or self-care (01) | LOC: LAB 09:00 → LAB SHORT 09:00 | DX: J47.9 Bronchiectasis, uncomplicated (principal) | CPT/HCPCS: 87070; 87077; 87186; 87205 ==

== ENCOUNTER → 2025-08-24 | Outpatient (CLI) | payer MEDICARE, OTHER | LOC: LAB SHORT 13:16 → LAB 13:16 | DX: J47.9 Bronchiectasis, uncomplicated (principal) | CPT/HCPCS: 87070; 87077; 87186; 87205 ==

== ENCOUNTER → 2025-10-24 | Outpatient (CLI) | payer MEDICARE, OTHER | LOC: LAB SHORT 16:45 → LAB 16:45 | DX: J47.9 Bronchiectasis, uncomplicated (principal) | CPT/HCPCS: 87070; 87205 ==